=== PATIENT | male | born 1955 | race Caucasian/White ===

== ENCOUNTER 2023-04-06 09:20 | Emergency (ER) | payer MEDICARE, SELFPAY ==
[2023-04-06 09:21] VITALS: BP 133/82; PULSE 82; RESP 18; TEMP 36.6; O2SAT 100
[2023-04-06 09:29] VITALS: BMI 39.6
[2023-04-06] MEDS: Ondansetron 4 MG/2 ML Vial IV (10:01)
[2023-04-06] MEDS: 0.9% Normal Saline (1000mL) 1,000 ML 1000 ML IV (10:01)
[2023-04-06] MEDS: MethylPREDNISolone 125 MG/2 ML Vial 60 MG IV (10:01)
[2023-04-06] MEDS: DiphenhydrAMINE 50 MG/ML Syringe 25 MG IV (10:01)
[2023-04-06 10:05] LABS: Absolute Neutrophil Count 5.2 X10^3/uL (2.0-7.7); Basophil# 0.04 X10^3/uL; Basophil% 0.5 % (0-1); Eosinophil# 0.27 X10^3/uL; Eosinophils% 3.5 % (0-5); Hematocrit 38.1 % (40-54); Lymphocyte % 19.5 % (19-41); Mean Corp Hgb Conc 31.5 g/dL (32-36); Mean Corpuscular Hgb 28.2 pg (27.0-32.0); Mean Corpuscular Volume 89.6 fL (80-94); Mean Platelet Vol. 9.1 fl (6.2-12.0); Monocyte# 0.71 X10^3/uL; Monocyte% 9.2 % (0-10); NRBC Flagged by Analyzer 0 % (0-5); Neutrophil # 5.15 X10^3/uL (2.7-7.7); Platelet Count 200 K/mm3 (150-450); RBC Distribution Width CV 14.1 % (11.6-14.6); RBC Distribution Width SD 45.5 fl (35.1-43.9); Red Blood Count 4.25 M/mm3 (4.6-6.2); White Blood Count 7.7 K/mm3 (4.4-11.0)
[2023-04-06 10:21] LABS: AST(SGOT) 17 U/L (15-37); Alanine Aminotransfer ALT/SGPT 25 U/L (16-61); Albumin, Serum 3.6 g/dL (3.2-5.0); Alkaline Phosphatase 76 U/L (45-117); Anion Gap 7 (5-15); BUN 23 mg/dL (7-18); BUN/Creat Ratio 26.8 RATIO (10-20); Chloride 108 mmol/L (98-107); Creatinine, Serum 0.86 mg/dL (0.70-1.30); EST Glomerular Filtration Rate 94 mL/min (>60); Est Glom Filt Rate - Afr Amer 114 mL/min (>60); Estimated Creatinine Clearance 69.79 ml/min; Globulin 3.7 g/dL (2.2-4.2); Glucose 105 mg/dL (74-106); Potassium 4.2 mmol/L (3.5-5.1); Protein, Total 7.3 g/dL (6.4-8.2); Sodium Level 140 mmol/L (136-145)
[2023-04-06 10:32] VITALS: BP 117/58; PULSE 65; RESP 18; TEMP 36.6; O2SAT 93
--- NOTE | 2023-04-06 10:45 | EDS_ITS ---
HPI History of Present Illness Chief Complaint: Diarrhea Informant: patient Narrative Narrative: Patient presents with 2 concerns today. His first concern is diarrhea that started about 2 days ago. He states it has been watery. He is never seen any black or blood. He did vomit once this morning at about 430 and has mild nausea now. No blood was seen. He states it was just frothy. He has not had fevers chills. He states his abdomen cramps off and on but is not painful. No urinary changes. He has not been on any antibiotics for quite some time. No travel out of the country. No known exposures to any foods or unknown cleaned water. He has had prior cholecystectomy and appendectomy. No chronic issues with diarrhea. Patient's other complaint is itching. He states he has had the itching episodes before. It normally occurs more on the left than the right side of his body. He will get some red areas if he scratches. He has no trouble breathing with this. He cannot think of anything that causes this when it occurs. 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 It is not always accompanied with the diarrhea though. [facility] Medical History Hypertension Type 2 diabetes mellitus Home Medications clindamycin HCl 150 mg capsule 300 mg (2 x 150 mg) PO 4X/DAY ##80 01/24/16 [Rx Last Taken Unknown] prednisone 50 mg tablet 50 mg PO DAILY #5 tabs 04/06/23 [Rx Last Taken Unknown] Allergy/AdvReac Type Severity Reaction Status Date / Time No Known Allergies Allergy Verified 04/06/23 09:22 Surgical History Hx of appendectomy Hx of cholecystectomy Social History Smoking Status: Current every day smoker tobacco type: cigarettes ROS ROS ED ROS Narrative A complete review of systems was performed and is negative except as documented in the history of present illness. Some specific details below. Constitutional: No recent fevers or chills. No generalized malaise. EYE: No visual complaints or pain. No burning or itching ENT: No difficulty swallowing. No swelling. No pain. No GERD. CV: No chest pain or palpitations. Respiratory: No dyspnea. No hemoptysis. No difficulty taking breaths. GI: Please see history of present illness. : No frequency dysuria or hematuria. Denies notable decrease in urine output. Musculoskeletal: No recent trauma. No pains. Skin: See history of present illness. Neuro: No weakness or numbness. Endocrine: No polyuria or polydipsia. EXAM Physical Exam Narrative Exam Narrative: CONSTITUTIONAL: Patient is nontoxic in appearance. The patient looks comfortable. HEENT: No notable trauma. Mucous membranes moist. No petechiae or purpura. No swelling. No angioedema. No sinus tenderness. No indication of pain with swallowing. EYES: No conjunctival injection. No proptosis. CARDIOVASCULAR: Regular rate. Regular rhythm. No notable murmur. No JVD. RESPIRATORY: No respiratory distress. Breathing is unlabored. No wheezes. No rhonchi. No rales. No pain with a deep breath. GASTROINTESTINAL: Not distended. Bowel sounds are normal to slightly increase. No tenderness. No guarding. No rebound. No palpable mass. No bruit. Overall relatively benign abdomen GENITOURINARY: No tenderness over the bladder. No CVA tenderness. MUSCULOSKELETAL: Atraumatic. No peripheral edema. No cord. No tenderness along the deep venous system. No asymmetry. NEUROLOGICAL: Patient is alert and appropriate. No focal deficit noted. SKIN: There are few areas of excoriation and almost a hint of hives on his upper chest but it does cover both sides. He is got a little bit on his left flank. PSYCHIATRIC: Patient is calm. Mood is appropriate. Const Vital Signs: 04/06/23 09:21 04/06/23 10:32 Temperature 97.9 F 97.8 F Temperature Source Temporal Oral Pulse Rate 82 65 Respiratory Rate 18 18 Blood Pressure 133/82 H 117/58 L Blood Pressure Mean 99 77 Pulse Ox 100 93 Oxygen Delivery Method Room Air Room Air MDM MDM MDM Narrative Medical decision making narrative: Patient CBC shows normal white count. Platelets are normal. Minimally low hemoglobin but he has no report of bleeding. Patient's electrolytes show no marked abnormalities but he does have a slight high BUN and high BUN to creatinine ratio consistent with some dehydration. Patient's liver function test are normal. Patient is feeling better. His itching is gone after meds. He can tolerate liquids. Patient states he has Imodium at home. I will write for some Zofran. We discussed reasons to return. Since he has no fever, white count, or tender abdomen I do not think scanning abdomen is needed. He has no known risk factor for C. difficile colitis and has no fever and no elevated white count which also goes against this. Patient will be placed on a short course of prednisone. He has done this before for this itching that he gets. He has tolerated this with his blood sugars quite well. Lab Data Attestation: I reviewed the patient's lab results. Labs: Laboratory Results - last 24 hr 04/06/23 09:53 WBC 7.7 RBC 4.25 L Hgb 12.0 L Hct 38.1 L MCV 89.6 MCH 28.2 MCHC 31.5 L RDW Std Deviation 45.5 H RDW Coeff of Mayo 14.1 Plt Count 200 MPV 9.1 Immature Gran % (Auto) 0.300 Neut % (Auto) 67.0 Lymph % (Auto) 19.5 [place] % (Auto) 9.2 Eos % (Auto) 3.5 Baso % (Auto) 0.5 Absolute Neuts (auto) 5.2 Absolute Lymphs (auto) 1.50 Nucleated RBC % 0 Sodium 140 Potassium 4.2 Chloride 108 H Carbon Dioxide 25.0 Anion Gap 7 BUN 23 H Creatinine 0.86 Estim Creat Clear Calc 69.79 Est GFR (MDRD) Af Amer 114 Est GFR (MDRD) Non-Af 94 BUN/Creatinine Ratio 26.8 H Glucose 105 Calcium 9.0 Total Bilirubin 0.40 AST 17 ALT 25 Alkaline Phosphatase 76 Total Protein 7.3 Albumin 3.6 Globulin 3.7 Albumin/Globulin Ratio 1.0 Discharge Plan Triage Chief Complaint: Diarrhea ED Provider: Bony Santillan Dx/Rx/DC Orders Clinical Impression: Nausea vomiting and diarrhea, Pruritus, Dehydration Instructions: ED Diet Vomiting Diarrhea Prescriptions: New prednisone 50 mg tablet 50 mg PO DAILY Qty: 5 0RF No Action clindamycin HCl 150 MG capsule 300 mg PO 4X/DAY Qty: 80 0RF Primary Care Provider: Care Physician,No Primary Referrals: Care Physician,No Primary [Primary Care Provider] - Activity Restrictions/Additional Instructions: Follow-up with your physician in the next couple days. Disposition Disposition: Home, Self Care
[2023-04-06 11:13] VITALS: BP 118/61; PULSE 72; RESP 16; O2SAT 92
== END 2023-04-06 11:19 | disposition home or self-care (01) ==
PROVIDERS: Emergency Provider Emergency Medicine; Visit Provider Emergency Medicine
DX: R11.2 Nausea with vomiting, unspecified (principal); E11.9 Type 2 diabetes mellitus without complications; E86.0 Dehydration; L29.9 Pruritus, unspecified; R19.7 Diarrhea, unspecified; I10 Essential (primary) hypertension; F17.210 Nicotine dependence, cigarettes, uncomplicated; Z90.49 Acquired absence of other specified parts of digestive tract
CPT/HCPCS: 80053; 85025; 96361; 96374; 96375; 99285; J7030; A4216; J2405